=== PATIENT | female | born 1940 | race Caucasian/White ===

== ENCOUNTER 2016-09-19 16:31 | Inpatient (IN) | payer MEDICARE, BC ==
[~2016-09-19 16:31] MED LIST: ATOR40TA PO; COZA50TA PO; GABA100C4 PO; GLUC10TA3 PO; HYDR-3534 PO; LEVO50TA4 PO; METF-324 PO; OMEP20TA PO
[2016-09-19 20:00] VITALS: BP 155/88; PULSE 90; PULSE 95; RESP 18; TEMP 98.6; O2SAT 97
[2016-09-19] MEDS: oxyCODONE/ACETAMINOPHEN 5 MG/325 MG TAB PO PRN (20:17)
--- NOTE | 2016-09-19 20:29 | HHI.HP ---
History of Present Illness Chief Complaint: Hx of right lower extremity great toe amputation for OM that has been slow to heal. History of Present Illness 76 year old female with hx of endovascular tibial revascularization in 2016 for right great toe gangrene status post amputation and wound care (wound care center [facility]) with hyperbaric oxygen. Patient presented to office for surveillance duplex US and was found to have patent right Common femoral, SFA and Popliteal arteries with monophasic flow distally. Right great toe stump was malodorous with discharge. Spoke with Dr. Massey application architect (privileges at [facility]) last week in office. Dr. Massey asked if patient could be admitted via [facility] ER for evaluation and possible debridement/resection and plan for IV antibiotics by her ID physician ( wound care physician) in charge of her hyperbaric oxygen (Dr. Pa) I agreed to this although suspected failed vascular intervention and that patient needed an angiogram with possible intervention (percutaneous vs open) with vein mapping. Was scheduled to have this today at [facility]. Patient's son notified me that patient had an angiogram and would be possibly having a bypass by Dr. Watts at [facility]. This is a long established patient known to me and after discussion with the patient's son they agreed to have the patient transferred here. Past/Family/Social History Past Medical History DM PAD peripheral neuropathy hypertension hypothyroidism anemia Past Surgical History Right great toe amputation. 2016 right lower extremity revascularization (endovascular) awaiting records/films to review previous tx. Social History denies smoking or alcohol. Family History denies Home Medications Reported Medications Multiple Vitamin (Multi-Vitamin Daily)1 Tab Tab1 Tab PO DAILY Ref 0 09/19/16 Losartan 50 Mg Tab50 Mg PO DAILY #30 TAB Ref 0 09/19/16 Omeprazole 20 Mg Tab20 Mg PO DAILY #30 TAB Ref 0 09/19/16 Levothyroxine 50 Mcg Tab50 Mcg PO DAILY #30 TAB Ref 0 09/19/16 Glipizide 10 Mg Tab10 Mg PO BIDAC #60 TAB Ref 0 Take 30 minutes before a meal 09/19/16 Pregabalin (Lyrica)75 Mg Cap75 Mg PO BID #60 CAP Ref 0 09/19/16 Simvastatin 40 Mg Tab40 Mg PO HS #30 TAB Ref 0 09/19/16 Discontinued Reported Medications Hydrocodone/Acetaminophen 7.5 mg/325 mg (Lortab 7.5 mg/325 mg)1 Tab1 Tab PO Q4H PRN (PAIN) 07/30/14 Metformin ER 24 HR 1,000 Mg Tab1,000 Mg PO BIDAC 04/26/13 Levothyroxine Sodium (Levothyroxine 50 mcg)50 Mcg Tab50 Mcg PO DAILY 04/26/13 Omeprazole 20 mg 20 Mg Tab20 Mg PO DAILY 04/26/13 Losartan Potassium (Cozaar)50 Mg Tab50 Mg PO DAILY 04/26/13 Gabapentin 100 Mg Pbg311 Mg PO TID 04/25/13 Atorvastatin 40 mg 40 Mg Tab40 Mg PO HS 04/25/13 Glipizide 10 Mg Tab10 Mg PO BID 04/25/13 Coded Allergies: No Known Allergies (Unverified , 04/26/13) Review of Systems Musculoskeletal: COMPLAINS OF: Muscle aches (right calf pain.) Physical Exam Neuro: CN2-12 intact. gross motor intact right foot. Neck: No carotid bruits. Heart: no murmurs Lungs: CTA bilaterally Abdomen: soft and non-distended. Vascular: Bilateral femoral palpable. Right dp and pt monophasic left dp and pt Triphasic Extremities: left groin with ecchymosis Right great toe amputation stump with serous drainage. (non-malodorous) discoloration right 2nd toe. Assessment and Plan Assessment: (1) Diabetic foot ulcer with osteomyelitis Status: Chronic Plan This is a 76 year old female with a right great toe amputation that has failed to completely heal. Patient has had wound care with hyperbaric tx and courses of antibiotics. She had a hx of an endovascular intervention (tibial balloon angioplasty) that has failed performed by me in March of 2016. I don't have access to previous images but most recent angiogram report notes an occluded Pop/tibioperonal trunk and proximal AT with distal reconstitution (from [facility]) Toe stump wound improved in appearance and odor improved with IV antibiotics. Will review MRI (09/16) suspicious for right 1st dorsal MT head OM. Will vein map and review previous angiogram. Bypass vs recanalization. Will most likely perform an arteriogram to critically review runoff 09/20. I spoke with daughter by phone after patient admitted to discuss plan. Julian Brooks DO,FACS' [facility] MICHELLE/Julian Garcia DO Sep 19, 2016 20:29
[2016-09-19 20:58] LABS: AUTOMATED NEUTROPHIL # 6.1 TH/MM3 (1.8-7.7); BASOPHIL # 0.1 TH/MM3 (0-0.2); BASOPHIL % 0.6 % (0.0-2.0); EOSINOPHIL # 0.1 TH/MM3 (0-0.4); EOSINOPHIL % 1.6 % (0.0-4.0); HEMATOCRIT 32.8 % (35.0-46.0); HEMO FLAGS DIFF FINAL; LYMPHOCYTE # 1.6 TH/MM3 (1.0-4.8); MEAN CELL VOLUME 86.7 FL (80.0-100.0); MEAN CORPUSCULAR HGB CONC 33.4 % (32.0-36.0); MONO % 10.6 % (0.0-8.0); NEUT % 69.2 % (16.0-70.0); PLATELET COUNT 257 TH/MM3 (150-450); RED BLOOD COUNT 3.78 MIL/MM3 (4.00-5.30); RED CELL DISTRIBUTION WIDTH 15.4 % (11.6-17.2); WHITE BLOOD COUNT 8.9 TH/MM3 (4.0-11.0)
[2016-09-19 21:00] VITALS: PULSE 87
[2016-09-19 21:10] VITALS: O2SAT 97
[2016-09-19 21:10] LABS: APTT (PATIENT) 25.9 SEC (24.3-30.1); PROTHROMBIN TIME - PATIENT 10.7 SEC (9.8-11.6)
[2016-09-19 21:22] LABS: BICARBONATE 29.8 MEQ/L (21.0-32.0); POTASSIUM 3.9 MEQ/L (3.5-5.1)
[2016-09-19 22:00] VITALS: PULSE 83
[2016-09-19] MEDS ORDERED: SIMV40TA PO (22:20)
[2016-09-19] MEDS ORDERED: LYRI75CA PO (22:20)
[2016-09-19] MEDS ORDERED: LOSA50TA PO (22:23)
[2016-09-19] MEDS ORDERED: GLIP10TA6 PO (22:23)
[2016-09-19] MEDS ORDERED: OMEP20TA PO (22:23)
[2016-09-19] MEDS ORDERED: LEVO50TA4 PO (22:23)
[2016-09-19] MEDS ORDERED: MULT-65 PO (22:28)
[2016-09-19] MEDS: MORPHINE SULFATE 4 MG/ML INJ IV PRN (22:36)
[2016-09-19] MEDS: DEXT 5%-NACL 0.9% 1000 ML INJ 1,000 ML IV SCH (22:41)
[2016-09-19 23:00] VITALS: PULSE 83
[2016-09-19] MEDS ORDERED: GLUCAGON 1 MG/ML VIAL OTHER PRN (23:00)
[2016-09-19] MEDS ORDERED: DEXTROSE 50% IN WATER 50 ML VIAL(D50) IV PUSH PRN (23:00)
[2016-09-20] VITALS (24 sets, daily range): BP systolic 131–152; BP diastolic 71–86; PULSE 80–109; RESP 18–20; TEMP 97.5–98.5; O2SAT 96–99
[2016-09-20] MEDS: PIPERACIL-TAZO 3.375 GM PREMIX 50 ML IV SCH ×5 (00:14→23:13)
[2016-09-20] MEDS: VANCOMYCIN 1,000 MG/NS 250 ML IV SCH ×4 (00:43→23:13)
[2016-09-20] MEDS: MORPHINE SULFATE 4 MG/ML INJ IV PRN ×6 (05:42→21:16)
[2016-09-20] MEDS: MEDIUM DOSE INSULIN NOVOLOG SUPPLEMENTAL SCALE SQ SCH ×4 (06:15→21:17)
[2016-09-20] MEDS: oxyCODONE/ACETAMINOPHEN 5 MG/325 MG TAB PO PRN ×3 (06:35→21:16)
[2016-09-20 07:03] LABS: AUTOMATED NEUTROPHIL # 5.4 TH/MM3 (1.8-7.7); BASOPHIL % 0.4 % (0.0-2.0); EOSINOPHIL # 0.2 TH/MM3 (0-0.4); EOSINOPHIL % 2.3 % (0.0-4.0); HEMATOCRIT 32.2 % (35.0-46.0); HEMO FLAGS DIFF FINAL; LYMPH % 20.5 % (9.0-44.0); LYMPHOCYTE # 1.7 TH/MM3 (1.0-4.8); MEAN CELL VOLUME 85.8 FL (80.0-100.0); MEAN CORPUSCULAR HEMOGLOBIN 28.4 PG (27.0-34.0); MEAN CORPUSCULAR HGB CONC 33.2 % (32.0-36.0); MONO % 11.1 % (0.0-8.0); NEUT % 65.7 % (16.0-70.0); PLATELET COUNT 256 TH/MM3 (150-450); RED BLOOD COUNT 3.76 MIL/MM3 (4.00-5.30); RED CELL DISTRIBUTION WIDTH 15.9 % (11.6-17.2); WHITE BLOOD COUNT 8.3 TH/MM3 (4.0-11.0)
[2016-09-20 07:08] LABS: APTT (PATIENT) 26.1 SEC (24.3-30.1); PROTHROMBIN TIME - PATIENT 10.9 SEC (9.8-11.6)
[2016-09-20 07:18] LABS: BICARBONATE 28.7 MEQ/L (21.0-32.0); POTASSIUM 3.8 MEQ/L (3.5-5.1)
--- NOTE | 2016-09-20 12:29 | RADRPT ---
EXAM DATE/TIME: 09/20/2016 10:50 [facility] COMPARISON: No previous studies available for comparison. INDICATIONS : Bypass surgery. MEDICAL HISTORY : Hypertension. Hiatal hernia. Thryoid disease. Diabetes. SURGICAL HISTORY : Cholecystectomy. Hernia repair. Kidney stone removed. Orthopedic surgery, right shoulder, back surger y, and right great toe amputated. ENCOUNTER: Initial ACUITY: 1 day PAIN SCORE: 0/10 LOCATION: Bilateral legs. TECHNIQUE: Venous ultrasound of the left and right leg was performed from the inguinal ligament to the proximal calf. Real-time, color Doppler and spectral tracing, compression and augmentation techniques were us ed. FINDINGS: RIGHT LEG: There is normal compressibility of the deep venous system from the inguinal region to the proximal ca lf. No echogenic clot is seen in the lumen of the common femoral, femoral, popliteal, and posterior tibial veins. There is a normal response of the venous system to proximal and distal augmentation an d respiration. LEFT LEG: There is normal compressibility of the deep venous system from the inguinal region to the proximal ca lf. No echogenic clot is seen in the lumen of the common femoral, femoral, popliteal, and posterior tibial veins. There is a normal response of the venous system to proximal and distal augmentation an d respiration. CONCLUSION: No DVT is identified within either lower extremity. Alfredo Gr MD on September 20, 2016 at 12:28 Board Certified Radiologist. This report was verified electronically.
[2016-09-20] MEDS ORDERED: MAGN500T2 PO (13:02)
--- NOTE | 2016-09-20 14:29 | RADRPT ---
EXAM DATE/TIME: 09/20/2016 11:00 [facility] COMPARISON: No previous studies available for comparison. INDICATIONS : Bypass surgery. MEDICAL HISTORY : Hypertension. Hiatal hernia. Thryoid disease. Diabetes. SURGICAL HISTORY : Cholecystectomy. Hernia repair. Kidney stone removed. Orthopedic surgery, right shoulder, back surg sky, and right great toe amputated. ENCOUNTER: Initial ACUITY: 1 day PAIN SCORE: 0/10 LOCATION: Bilateral legs. GREATER SAPHENOUS VEIN THIGH: PROXIMAL: Right 4 mm Left 4 mm MID: Right 4 mm Left 3 mm DISTAL: Right 4 mm Left 2 mm CALF: PROXIMAL: Right 3 mm Left 2 mm MID: Right 3 mm Left 2 mm DISTAL: Right 3 mm Left 3 mm FINDINGS: The venous system of the lower extremities are patent by color Doppler imaging. Measurements of the leg veins (in mm) are listed above. CONCLUSION: 1. Venous mapping as above Morro Bingham MD on September 20, 2016 at 14:28 Board Certified Radiologist. This report was verified electronically.
[2016-09-20] MEDS: DEXT 5%-NACL 0.9% 1000 ML INJ 1,000 ML IV SCH (14:53)
[2016-09-20] MEDS: glipiZIDE 10 MG TAB PO SCH (16:00)
--- NOTE | 2016-09-20 17:49 | PD.VS.PN ---
Subjective Subjective/Hospital Course patient with no new complaints Objective Vitals/I&O Dressing to right foot intact. Date Time Temp Pulse Resp B/P Pulse Ox O2 Delivery O2 Flow Rate FiO2 09/20/16 16:00 95 09/20/16 15:09 16 09/20/16 15:08 16 09/20/16 15:00 98.3 87 18 145/79 97 09/20/16 15:00 84 09/20/16 14:00 101 09/20/16 13:00 81 09/20/16 12:00 82 09/20/16 11:00 98.5 82 18 152/86 99 09/20/16 11:00 83 09/20/16 10:00 95 09/20/16 09:00 83 09/20/16 08:00 84 09/20/16 07:00 85 09/20/16 07:00 85 09/20/16 07:00 97.5 80 18 141/82 96 09/20/16 06:00 102 09/20/16 05:00 98.1 85 20 150/71 98 09/20/16 05:00 84 09/20/16 04:00 86 09/20/16 03:00 82 09/20/16 02:00 84 09/20/16 01:00 88 09/20/16 00:00 98.2 83 18 151/83 98 09/20/16 00:00 94 09/19/16 23:00 83 09/19/16 22:00 83 09/19/16 21:10 97 21 09/19/16 21:00 87 09/19/16 20:00 98.6 95 18 155/88 97 09/19/16 20:00 90 09/20/16 09/20/16 09/20/16 07:00 15:00 23:00 Intake Total 944 ml Output Total 1200 ml Balance -256 ml Laboratory Laboratory Tests Test 09/19/16 09/20/16 20:30 06:25 White Blood Count 8.9 8.3 Red Blood Count 3.78 3.76 Hemoglobin 10.9 10.7 Hematocrit 32.8 32.2 Mean Corpuscular Volume 86.7 85.8 Mean Corpuscular Hemoglobin 29.0 28.4 Mean Corpuscular Hemoglobin 33.4 33.2 Concent Red Cell Distribution Width 15.4 15.9 Platelet Count 257 256 Mean Platelet Volume 10.6 10.5 Neutrophils (%) (Auto) 69.2 65.7 Lymphocytes (%) (Auto) 18.0 20.5 Monocytes (%) (Auto) 10.6 11.1 Eosinophils (%) (Auto) 1.6 2.3 Basophils (%) (Auto) 0.6 0.4 Neutrophils # (Auto) 6.1 5.4 Lymphocytes # (Auto) 1.6 1.7 Monocytes # (Auto) 0.9 0.9 Eosinophils # (Auto) 0.1 0.2 Basophils # (Auto) 0.1 0.0 CBC Comment DIFF FINAL DIFF FINAL Differential Comment Prothrombin Time 10.7 10.9 Prothromb Time International 1.0 1.0 Ratio Activated Partial 25.9 26.1 Thromboplast Time Sodium Level 139 140 Potassium Level 3.9 3.8 Chloride Level 101 105 Carbon Dioxide Level 29.8 28.7 Anion Gap 8 6 Blood Urea Nitrogen 15 12 Creatinine 0.96 0.75 Estimat Glomerular Filtration 57 75 Rate Random Glucose 275 277 Calcium Level 8.8 8.9 Imaging Last 48 hours Impressions Lower Extremity Ultrasound 09/20/16 0000 Signed Impressions: Service Date/Time: Tuesday, September 20, 2016 10:50 - CONCLUSION: No DVT is identified within either lower extremity. Alfredo Gr MD Lower Extremity Ultrasound 09/20/16 0000 Signed Impressions: Service Date/Time: Tuesday, September 20, 2016 11:00 - CONCLUSION: 1. Venous mapping as above Morro Bingham MD Assessment and Plan Assessment: (1) Diabetic foot ulcer with osteomyelitis Status: Chronic Plan This is a 76 year old female with a right great toe amputation that has failed to completely heal. Patient has had wound care with hyperbaric tx and courses of antibiotics. Hx of failed endovascular tx. Toe stump wound improved in appearance and odor improved with IV antibiotics. Plan for arteriogram to definitively decide on possibility of bypass. Outside angio shows marginal AT target with disease at the most distal extent with poor runoff in the foot. This brings into question whether a bypass is a realistic option. Re-attempt at endovascular recanalization from the popliteal into the peroneal artery may be another alternative if bypass is not an option. Scheduled for arteriogram with possible intervention 09/21. I have spoken to the son, and patient about these plans. We have spoken about the risk of limb loss now and previously in office multiple times. They understand the risks and benefits of the angiogram and possible rechannelling of the popliteal and tibial vessels. Patient will have home medications restarted and will be made NPO for procedure tomorrow in the hybrid suite. Julian Brooks DO,ZACHARIAH' [facility] [employer] /Julian Garcia DO Sep 20, 2016 17:49
[2016-09-20] MEDS: PREGABALIN 75 MG CAP PO SCH (21:15)
[2016-09-20] MEDS: PRAVASTATIN SOD 80 MG TAB PO SCH (21:15)
[2016-09-20] MEDS ORDERED: DEXT 5%-NACL 0.9% 1000 ML INJ 1,000 ML IV SCH (23:00)
[2016-09-21] VITALS (18 sets, daily range): BP systolic 133–161; BP diastolic 73–86; PULSE 80–98; RESP 16–19; TEMP 98.1–98.7; O2SAT 96–100
[2016-09-21] MEDS: MORPHINE SULFATE 4 MG/ML INJ IV PRN ×5 (03:28→22:35)
[2016-09-21] MEDS: LEVOTHYROXINE SODIUM 50 MCG TAB PO SCH (06:01)
[2016-09-21] MEDS: PIPERACIL-TAZO 3.375 GM PREMIX 50 ML IV SCH ×4 (06:01→22:37)
[2016-09-21] MEDS ORDERED: METOPROLOL TARTRATE 25 MG TAB PO PRN (06:30)
[2016-09-21] MEDS: SODIUM CHLORID 0.9% 500 ML IV SCH ×2 (06:30→23:10)
[2016-09-21] MEDS: LACTATED RINGER'S 1000 ML IV SCH (06:30)
[2016-09-21] MEDS ORDERED: INSULIN HUMAN REGULAR 1,000 UNITS/10 ML VIAL SQ PRN (06:30)
[2016-09-21] MEDS: glipiZIDE 10 MG TAB PO SCH ×2 (07:00→15:24)
[2016-09-21] MEDS: MEDIUM DOSE INSULIN NOVOLOG SUPPLEMENTAL SCALE SQ SCH ×4 (07:00→21:00)
--- NOTE | 2016-09-21 08:07 | EKG ---
Date Performed: 09/21/2016 Time Performed: 06:16:46 PTAGE: 76 years EKG: Sinus rhythm with borderline 1st degree A-V block Borderline ECG NO SIGNIFICANT CHANGE FROM PRIOR ELECTROCARDIOGR AM. PREVIOUS TRACING : 04/25/2013 10.15 DOCTOR: Jose Garcia Interpretating Date/Time 09/21/2016 08:06:15
[2016-09-21] MEDS: MULTIVITAMIN TAB PO SCH (08:45)
[2016-09-21] MEDS: PANTOPRAZOLE SOD 20 MG DELAYED RELEASE TAB PO SCH (08:45)
[2016-09-21] MEDS: PREGABALIN 75 MG CAP PO SCH ×2 (08:45→22:36)
[2016-09-21] MEDS: LOSARTAN 50 MG TAB PO SCH (08:45)
[2016-09-21] MEDS: oxyCODONE/ACETAMINOPHEN 5 MG/325 MG TAB PO PRN ×2 (08:45→22:44)
[2016-09-21] MEDS ORDERED: Vancomycin Consult Pharmacy XX SCH (10:30)
[2016-09-21] MEDS ORDERED: MAGNESIUM OXIDE 400 MG TAB PO SCH (11:00)
[2016-09-21] MEDS ORDERED: BUPIVACAINE/EPINEPHRINE 0.25% PF 30 ML VIAL ONE ×2 (15:38→15:39)
[2016-09-21] MEDS ORDERED: HEPARIN SODIUM - SQ 10,000 UNITS/ML VIAL ONE (15:39)
[2016-09-21] MEDS ORDERED: FAMOTIDINE 20 MG/2 ML VIAL ONE (15:47)
[2016-09-21] MEDS ORDERED: MIDAZOLAM HCL 2 MG/2 ML VIAL ONE (16:02)
[2016-09-21] MEDS ORDERED: HEPARIN SODIUM - IV 10,000 UNITS/10 ML VIAL ONE (16:33)
[2016-09-21] MEDS ORDERED: ceFAZolin INJ 1,000 MG VIAL ONE (16:33)
[2016-09-21] MEDS ORDERED: PROTAMINE SULFATE 50 MG/5 ML VIAL ONE (17:36)
--- NOTE | 2016-09-21 18:23 | PD.VS.PN ---
Subjective Subjective/Hospital Course patient with no new complaints Objective Vitals/I&O Date Time Temp Pulse Resp B/P Pulse Ox O2 Delivery O2 Flow Rate FiO2 09/21/16 13:00 81 09/21/16 12:00 90 09/21/16 11:40 16 09/21/16 11:31 98.2 84 18 136/73 09/21/16 11:00 84 09/21/16 10:00 82 09/21/16 09:45 20 09/21/16 09:45 20 09/21/16 09:00 85 09/21/16 08:30 98.1 98 19 137/85 98 09/21/16 08:00 91 09/21/16 07:00 89 09/21/16 06:00 85 09/21/16 05:00 82 09/21/16 04:00 84 09/21/16 03:00 86 09/21/16 03:00 98.3 86 18 161/86 98 09/21/16 02:00 80 09/21/16 01:00 80 09/21/16 00:00 87 09/20/16 23:00 98.4 86 18 134/71 96 09/20/16 23:00 86 09/20/16 22:00 90 09/20/16 21:00 88 09/20/16 20:00 89 09/20/16 19:00 98.1 90 18 131/80 98 09/20/16 19:00 90 09/21/16 09/21/16 09/21/16 07:00 15:00 23:00 Intake Total 1250 ml 1070 ml Output Total 1150 ml 400 ml 700 ml Balance 100 ml -400 ml 370 ml Physical Exam left groin with expanding ecchymosis and skin tear under groin crease. No induration or fluctuance. Imaging Last 48 hours Impressions Lower Extremity Ultrasound 09/20/16 0000 Signed Impressions: Service Date/Time: Tuesday, September 20, 2016 10:50 - CONCLUSION: No DVT is identified within either lower extremity. Alfredo Gr MD Lower Extremity Ultrasound 09/20/16 0000 Signed Impressions: Service Date/Time: Tuesday, September 20, 2016 11:00 - CONCLUSION: 1. Venous mapping as above Morro Bingham MD Assessment and Plan Assessment: (1) Diabetic foot ulcer with osteomyelitis Status: Chronic Plan This is a 76 year old female with a right great toe amputation that has failed to completely heal. Patient has had wound care with hyperbaric tx and courses of antibiotics. Hx of failed endovascular tx. Patient taken to endovascular suite. Patient accessed and Siemens hybrid machine dysfunctional. Inability to perform angiogram. Plan for repeat attempt later this week or early next week. Spoke with son. Julian Brooks DO,FACS' [employer] [facility] Vascular Surgery /[place] Julian Brooks DO Sep 21, 2016 18:23
--- NOTE | 2016-09-21 20:55 | MA ---
cc: JULIAN HURLEY DO DATE: 09/21/2016 ANGIOGRAM REPORT PREOPERATIVE DIAGNOSIS Critical limb ischemia, right lower extremity POSTOPERATIVE DIAGNOSIS Critical limb ischemia, right lower extremity. PROCEDURE Ultrasound access for left groin. SURGEON Julian Hurley MD. ANESTHESIA MAC and approximately 5 cc of 0.25% Marcaine with epinephrine. IV FLUIDS Approximately 30 cc. PROCEDURE The patient was prepped from the thigh port process to the toes. I got access to the left common femoral artery using duplex ultrasound with a 21-gauge needle. I exchanged over a thin wire for a 4-Icelandic micropuncture catheter, then I exchanged over a braided wire for a 5-Icelandic sheath. I advanced an Omni Flush catheter over a stiff-angled Glidewire in the abdominal aorta. As we were advancing our glidewire up over the catheter, it should be noted that the x-ray imaging appeared grainy and we were able to actually see angio but no DSA was available. It should be noted that since we did have the sheath within the patient we gave him 3000 units of heparin. We tried to do a soft stop and then a total shunt down on the system with a second restart of the system with inability to get the system restarted, and there would be suboptimal imaging for any type of recanalization to determine the best optimal runoff for a bypass. Based on this we gave the patient 30 units of protamine and removed the sheath from the left groin and applied pressure. The patient did get approximately 5 cc of 0.25% Marcaine with epinephrine in the left groin. DO AUSTIN Aquino/ZULMA /5:44 PM /8:02 PM
[2016-09-21] MEDS: PRAVASTATIN SOD 80 MG TAB PO SCH (22:36)
[2016-09-21] MEDS: VANCOMYCIN 1,000 MG/NS 250 ML IV SCH ×2 (22:37)
[2016-09-21] MEDS ORDERED: [UNRECOGNIZED DRUG - REMARK] XX ONE (22:45)
[2016-09-22] VITALS (15 sets, daily range): BP systolic 90–158; BP diastolic 50–89; PULSE 79–101; RESP 16–22; TEMP 97.9–99.5; O2SAT 94–98
[2016-09-22] MEDS: MORPHINE SULFATE 4 MG/ML INJ IV PRN ×5 (03:29→16:31)
[2016-09-22] MEDS: LACTATED RINGER'S 1000 ML IV SCH (04:32)
[2016-09-22] MEDS: LEVOTHYROXINE SODIUM 50 MCG TAB PO SCH (04:32)
[2016-09-22] MEDS: PIPERACIL-TAZO 3.375 GM PREMIX 50 ML IV SCH ×3 (04:32→16:43)
[2016-09-22] MEDS: MEDIUM DOSE INSULIN NOVOLOG SUPPLEMENTAL SCALE SQ SCH ×4 (05:35→21:51)
[2016-09-22] MEDS: glipiZIDE 10 MG TAB PO SCH ×2 (05:35→16:30)
[2016-09-22] MEDS: LOSARTAN 50 MG TAB PO SCH (08:06)
[2016-09-22] MEDS: PANTOPRAZOLE SOD 20 MG DELAYED RELEASE TAB PO SCH (08:06)
[2016-09-22] MEDS: MULTIVITAMIN TAB PO SCH (08:06)
[2016-09-22] MEDS: PREGABALIN 75 MG CAP PO SCH ×2 (08:07→20:51)
[2016-09-22] MEDS: oxyCODONE/ACETAMINOPHEN 5 MG/325 MG TAB PO PRN ×2 (08:08→21:54)
[2016-09-22] MEDS ORDERED: NOVOLOGP2 SQ (08:15)
--- NOTE | 2016-09-22 10:28 | PD.VS.PN ---
Subjective Subjective/Hospital Course Pt is a 76/F resting comfortably in chair with family at the . Pt has no complaints at present time Objective Vitals/I&O Date Time Temp Pulse Resp B/P Pulse Ox O2 Delivery O2 Flow Rate FiO2 09/22/16 09:08 20 09/22/16 09:08 20 09/22/16 08:16 16 09/22/16 08:00 86 09/22/16 08:00 97.9 94 16 115/67 98 09/22/16 04:00 79 09/22/16 04:00 98.6 79 18 143/72 96 09/22/16 00:00 98.5 101 22 158/89 94 09/22/16 00:00 101 09/21/16 20:00 98.7 87 18 147/80 96 09/21/16 20:00 87 09/21/16 18:40 98.2 81 16 133/78 100 09/21/16 13:00 81 09/21/16 12:00 90 09/21/16 11:31 98.2 84 18 136/73 09/21/16 11:00 84 09/22/16 09/22/16 09/22/16 07:00 15:00 23:00 Intake Total 590 ml Output Total 1400 ml Balance -810 ml Physical Exam GENERAL: Pt alert in oriented in nad, GCS 15 SKIN: Warm and dry. Right great toe amp site with white d/c noted NECK: Supple, trachea midline. No JVD or lymphadenopathy. CARDIOVASCULAR: Regular rate and rhythm RESPIRATORY: No accessory muscle use. GASTROINTESTINAL: Abdomen soft, non-tender, nondistended. MUSCULOSKELETAL: No cyanosis, or edema. Laboratory Laboratory Tests Test 09/21/16 22:25 Vancomycin Level Trough 8.4 Creatinine 0.94 Estimat Glomerular Filtration 58 Rate Assessment and Plan Assessment: (1) Diabetic foot ulcer with osteomyelitis Status: Chronic Plan This is a 76 year old female with a right great toe amputation that has failed to completely heal. Patient has had wound care with hyperbaric tx and courses of antibiotics. Hx of failed endovascular tx. PT Consult Case Management Consult Wound Care Consult Adjust home medications Plan for repeat attempt Angio early next week with wound debridement . Syeda [facility]/[place] [phone] Syeda Cobian Sep 22, 2016 10:28
[2016-09-22] MEDS: COLLAGENASE OINT 30 GM TUBE TOP SCH (10:48)
[2016-09-22] MEDS: MAGNESIUM OXIDE 400 MG TAB PO SCH (16:43)
[2016-09-22 16:48] LABS: HEMOGLOBIN A1b 2.6 %; HEMOGLOBIN Ao 80.4 %; HEMOGLOBIN LA1C 2.8 %; HEMOGLOBIN P3 4.9 %
[2016-09-22] MEDS: VANCOMYCIN 1,000 MG/NS 250 ML IV SCH ×2 (17:38)
[2016-09-22] MEDS: PRAVASTATIN SOD 80 MG TAB PO SCH (20:51)
[2016-09-23] VITALS (17 sets, daily range): BP systolic 119–164; BP diastolic 78–84; PULSE 68–102; RESP 16–18; TEMP 97.4–99.5; O2SAT 96–99
[2016-09-23] MEDS: glipiZIDE 10 MG TAB PO SCH ×2 (05:42→17:30)
[2016-09-23] MEDS: PIPERACIL-TAZO 3.375 GM PREMIX 50 ML IV SCH ×5 (05:43→23:41)
[2016-09-23] MEDS: LEVOTHYROXINE SODIUM 50 MCG TAB PO SCH (05:43)
[2016-09-23] MEDS: oxyCODONE/ACETAMINOPHEN 5 MG/325 MG TAB PO PRN ×3 (05:43→21:03)
[2016-09-23] MEDS: MEDIUM DOSE INSULIN NOVOLOG SUPPLEMENTAL SCALE SQ SCH ×4 (05:43→20:57)
[2016-09-23] MEDS: LACTATED RINGER'S 1000 ML IV SCH (06:30)
[2016-09-23] MEDS: PANTOPRAZOLE SOD 20 MG DELAYED RELEASE TAB PO SCH (08:44)
[2016-09-23] MEDS: PREGABALIN 75 MG CAP PO SCH ×2 (08:44→20:57)
[2016-09-23] MEDS: LOSARTAN 50 MG TAB PO SCH (08:44)
[2016-09-23] MEDS: MULTIVITAMIN TAB PO SCH (08:45)
[2016-09-23] MEDS: COLLAGENASE OINT 30 GM TUBE TOP SCH (09:00)
[2016-09-23] MEDS: VANCOMYCIN 1,000 MG/NS 250 ML IV SCH ×2 (12:04)
--- NOTE | 2016-09-23 16:41 | PD.VS.PN ---
Subjective Subjective/Hospital Course Pt is a 76/F resting comfortably in chair with family at the . Pt has no complaints at present time Objective Vitals/I&O Date Time Temp Pulse Resp B/P Pulse Ox O2 Delivery O2 Flow Rate FiO2 09/23/16 16:31 97.4 80 18 119/78 96 09/23/16 16:31 80 09/23/16 14:53 80 09/23/16 13:19 18 09/23/16 13:16 92 09/23/16 12:08 83 09/23/16 12:08 97.8 86 18 164/83 99 09/23/16 11:30 81 09/23/16 10:36 18 09/23/16 10:00 84 09/23/16 09:00 87 09/23/16 08:00 92 09/23/16 08:00 97.6 87 18 136/83 98 09/23/16 04:00 88 09/23/16 04:00 98.7 88 16 138/83 96 09/23/16 00:00 68 09/23/16 00:00 99.5 102 16 159/83 96 09/22/16 20:00 99.5 87 16 138/65 96 09/22/16 20:00 87 09/22/16 18:00 89 09/22/16 17:00 87 09/23/16 09/23/16 09/23/16 07:00 15:00 23:00 Intake Total 360 ml Balance 360 ml Physical Exam dressing intact right foot. left groin with xeroform dressing. Assessment and Plan Assessment: (1) Diabetic foot ulcer with osteomyelitis Status: Chronic Plan This is a 76 year old female with a right great toe amputation that has failed to completely heal. Patient has had wound care with hyperbaric tx and courses of antibiotics. Hx of failed endovascular tx. PT Consult Case Management Consult Wound Care Consult Adjust home medications Hgb A1c greater than 7. Endocrinology consult early next week. Plan for right lower extremity angiogram and amputation revision on tuesday 09/26. Will obtain consent AM of procedure. Patient order for NPO placed. Julian Brooks DO, FACS [employer] Research Coordinator of Vascular Surgery MICHELLE/Julian Garcia DO Sep 23, 2016 16:41
[2016-09-23] MEDS: MAGNESIUM OXIDE 400 MG TAB PO SCH (17:52)
[2016-09-23] MEDS: PRAVASTATIN SOD 80 MG TAB PO SCH (20:57)
[2016-09-24] VITALS (22 sets, daily range): BP systolic 114–165; BP diastolic 71–90; PULSE 66–98; RESP 14–20; TEMP 97.9–99.2; O2SAT 95–98
[2016-09-24] MEDS: oxyCODONE/ACETAMINOPHEN 5 MG/325 MG TAB PO PRN (04:39)
[2016-09-24] MEDS: glipiZIDE 10 MG TAB PO SCH ×2 (05:31→16:55)
[2016-09-24] MEDS: LEVOTHYROXINE SODIUM 50 MCG TAB PO SCH (05:31)
[2016-09-24] MEDS: VANCOMYCIN 1,000 MG/NS 250 ML IV SCH ×2 (05:31)
[2016-09-24] MEDS: MEDIUM DOSE INSULIN NOVOLOG SUPPLEMENTAL SCALE SQ SCH ×4 (05:34→21:26)
[2016-09-24] MEDS ORDERED: PHARMACY ORDERED LAB XX ONE (05:45)
[2016-09-24] MEDS: LACTATED RINGER'S 1000 ML IV SCH (06:30)
[2016-09-24] MEDS: PIPERACIL-TAZO 3.375 GM PREMIX 50 ML IV SCH ×4 (07:02→23:15)
[2016-09-24] MEDS: COLLAGENASE OINT 30 GM TUBE TOP SCH (09:00)
[2016-09-24] MEDS: LOSARTAN 50 MG TAB PO SCH (09:03)
[2016-09-24] MEDS: MULTIVITAMIN TAB PO SCH (09:03)
[2016-09-24] MEDS: PREGABALIN 75 MG CAP PO SCH ×2 (09:03→21:23)
[2016-09-24] MEDS: PANTOPRAZOLE SOD 20 MG DELAYED RELEASE TAB PO SCH (09:04)
--- NOTE | 2016-09-24 09:46 | PD.VS.PN ---
Subjective Subjective/Hospital Course Pt is a 76/F with R LE tissue loss No complaints this morning Mj diet Objective Vitals/I&O Date Time Temp Pulse Resp B/P Pulse Ox O2 Delivery O2 Flow Rate FiO2 09/24/16 06:00 83 09/24/16 05:39 20 09/24/16 05:00 85 09/24/16 04:35 Room Air 09/24/16 04:35 98.5 93 20 165/87 95 09/24/16 04:00 85 09/24/16 03:00 88 09/24/16 02:00 87 09/24/16 01:00 66 09/24/16 00:00 67 09/24/16 00:00 Room Air 09/24/16 00:00 99.2 84 18 147/81 96 09/23/16 23:00 68 09/23/16 22:00 80 09/23/16 21:57 20 09/23/16 21:00 91 09/23/16 20:00 98.4 91 18 154/84 97 09/23/16 20:00 94 09/23/16 20:00 Room Air 09/23/16 19:00 88 09/23/16 18:08 91 09/23/16 17:26 83 09/23/16 16:31 97.4 80 18 119/78 96 09/23/16 16:31 80 09/23/16 14:53 80 09/23/16 13:16 92 09/23/16 12:08 83 09/23/16 12:08 97.8 86 18 164/83 99 09/23/16 11:30 81 09/23/16 10:00 84 09/24/16 09/24/16 09/24/16 07:00 15:00 23:00 Intake Total 653 ml Balance 653 ml Physical Exam L groin still ecchymotic but significantly improved Laboratory Laboratory Tests Test 09/24/16 05:00 Creatinine 0.86 Estimat Glomerular Filtration 64 Rate Vancomycin Level Trough 12.1 Assessment and Plan Assessment: (1) Diabetic foot ulcer with osteomyelitis Status: Chronic Plan This is a 76 year old female with a right great toe amputation that has failed to completely heal. Patient has had wound care with hyperbaric tx and courses of antibiotics. Hx of failed endovascular tx. Plan for R LE angiogram and toe debridement / amputation Monday Endocrine c/s since Hgb A1c 7.7 Calin Berry MD Sep 24, 2016 09:46
[2016-09-24] MEDS: VANCOMYCIN INJ 750 MG in SODIUM CHLOR 0.9% 250 ML INJ 250 ML IV SCH (17:04)
[2016-09-24] MEDS: MAGNESIUM OXIDE 400 MG TAB PO SCH (17:04)
[2016-09-24] MEDS: PRAVASTATIN SOD 80 MG TAB PO SCH (21:23)
[2016-09-25] VITALS (24 sets, daily range): BP systolic 105–158; BP diastolic 50–87; PULSE 75–94; RESP 14–22; TEMP 97.6–98.8; O2SAT 95–99
[2016-09-25] MEDS: oxyCODONE/ACETAMINOPHEN 5 MG/325 MG TAB PO PRN ×4 (00:53→23:29)
[2016-09-25] MEDS: MORPHINE SULFATE 4 MG/ML INJ IV PRN ×2 (03:11→18:11)
[2016-09-25] MEDS: VANCOMYCIN INJ 750 MG in SODIUM CHLOR 0.9% 250 ML INJ 250 ML IV SCH ×2 (05:27→18:46)
[2016-09-25] MEDS: LEVOTHYROXINE SODIUM 50 MCG TAB PO SCH (05:49)
[2016-09-25] MEDS: PIPERACIL-TAZO 3.375 GM PREMIX 50 ML IV SCH ×4 (06:00→23:15)
[2016-09-25] MEDS: LACTATED RINGER'S 1000 ML IV SCH (06:30)
[2016-09-25] MEDS: MEDIUM DOSE INSULIN NOVOLOG SUPPLEMENTAL SCALE SQ SCH ×5 (07:00→20:07)
[2016-09-25] MEDS: glipiZIDE 10 MG TAB PO SCH ×2 (07:42→17:16)
[2016-09-25] MEDS: COLLAGENASE OINT 30 GM TUBE TOP SCH (09:00)
[2016-09-25] MEDS: MULTIVITAMIN TAB PO SCH (09:46)
[2016-09-25] MEDS: PANTOPRAZOLE SOD 20 MG DELAYED RELEASE TAB PO SCH (09:46)
[2016-09-25] MEDS: LOSARTAN 50 MG TAB PO SCH (09:46)
[2016-09-25] MEDS: PREGABALIN 75 MG CAP PO SCH ×2 (09:47→20:01)
--- NOTE | 2016-09-25 13:27 | PD.VS.PN ---
Subjective Subjective/Hospital Course Pt is a 76/F with R LE tissue loss No complaints this morning Sitting in chair, eating. Notes L groin feels better Objective Vitals/I&O Date Time Temp Pulse Resp B/P Pulse Ox O2 Delivery O2 Flow Rate FiO2 09/25/16 13:20 89 09/25/16 13:02 18 09/25/16 12:19 97.6 84 20 136/85 99 09/25/16 12:19 84 09/25/16 11:49 80 09/25/16 10:47 18 09/25/16 10:43 85 09/25/16 09:55 91 09/25/16 08:00 98.3 91 20 158/87 98 09/25/16 08:00 98 Room Air 09/25/16 08:00 92 09/25/16 06:00 78 09/25/16 05:00 75 09/25/16 04:00 94 09/25/16 04:00 98.3 80 14 105/50 96 09/25/16 03:00 78 09/25/16 02:00 79 09/25/16 01:00 87 09/25/16 00:00 87 09/25/16 00:00 98.8 87 14 125/76 95 09/24/16 23:00 91 09/24/16 22:00 89 09/24/16 21:00 90 09/24/16 20:00 98.3 90 14 151/71 97 09/24/16 20:00 94 09/24/16 19:00 97 Nasal Cannula 2.00 09/24/16 19:00 92 09/24/16 18:07 98 09/24/16 17:08 94 09/24/16 16:02 98.3 91 20 158/87 98 09/24/16 16:02 86 09/24/16 14:48 87 09/24/16 13:32 88 09/25/16 09/25/16 09/25/16 07:00 15:00 23:00 Intake Total 700 ml Output Total 1500 ml Balance -800 ml Physical Exam L groin less ecchymotic Assessment and Plan Assessment: (1) Diabetic foot ulcer with osteomyelitis Status: Chronic Plan This is a 76 year old female with a right great toe amputation that has failed to completely heal. Patient has had wound care with hyperbaric tx and courses of antibiotics. Hx of failed endovascular tx. Plan for R LE angiogram and toe debridement / amputation Monday Endocrine c/s since Hgb A1c 7.7 Calin Berry MD Sep 25, 2016 13:27
--- NOTE | 2016-09-25 13:29 | PD.VS.PN ---
Pre-operative Note Pre-operative diagnosis: R LE tissue loss, PAD Planned procedure: Aortogram w/ R LE angiogram, possible BUSINESS ANALYTICS MANAGER/stent/atherectomy Amputation of toe/metatarsal R 1st digit Labs: Hct 32 (09/20) Cr 0.9 (09/24) INR 1.0 (09/20) Blood: none needed Orders: NPO after MN MIVF Post-operative destination: PACU Operative site marked: Yes Consent: Informed consent has been obtained from Nimo Russo. I have explained the procedure in detail and discussed the risks, benefits, and potential complications. All questions have been answered. Calin Berry MD Sep 25, 2016 13:28
[2016-09-25] MEDS ORDERED: PHARMACY ORDERED LAB XX ONE (17:45)
[2016-09-25] MEDS: MAGNESIUM OXIDE 400 MG TAB PO SCH (18:46)
[2016-09-25] MEDS: PRAVASTATIN SOD 80 MG TAB PO SCH (20:01)
[2016-09-26] VITALS (20 sets, daily range): BP systolic 120–169; BP diastolic 60–86; PULSE 71–89; RESP 16–20; TEMP 97.3–98.3; O2SAT 96–99
[2016-09-26] MEDS: SODIUM BICARBONATE 8.4% INJ 50 MEQ in DEXTROSE 5% IN WATE 1000ML INJ 1,000 ML IV SCH ×2 (00:09)
[2016-09-26] MEDS: oxyCODONE/ACETAMINOPHEN 5 MG/325 MG TAB PO PRN ×3 (03:42→20:10)
[2016-09-26] MEDS: PIPERACIL-TAZO 3.375 GM PREMIX 50 ML IV SCH ×3 (06:00→17:56)
[2016-09-26] MEDS: LEVOTHYROXINE SODIUM 50 MCG TAB PO SCH (06:06)
[2016-09-26] MEDS: PREGABALIN 75 MG CAP PO SCH ×3 (06:30→20:21)
[2016-09-26] MEDS: VANCOMYCIN INJ 750 MG in SODIUM CHLOR 0.9% 250 ML INJ 250 ML IV SCH ×2 (06:30→19:14)
[2016-09-26] MEDS: MEDIUM DOSE INSULIN NOVOLOG SUPPLEMENTAL SCALE SQ SCH ×4 (06:44→20:10)
[2016-09-26] MEDS ORDERED: HEPARIN SODIUM - SQ 10,000 UNITS/ML VIAL ONE (06:49)
[2016-09-26] MEDS ORDERED: HEPARIN SODIUM - IV 10,000 UNITS/10 ML VIAL ONE (06:49)
[2016-09-26] MEDS ORDERED: PROTAMINE SULFATE 50 MG/5 ML VIAL ONE (06:49)
[2016-09-26] MEDS: glipiZIDE 10 MG TAB PO SCH ×2 (07:00→17:32)
[2016-09-26] MEDS: SODIUM CHLORID 0.9% 500 ML IV SCH (07:30)
[2016-09-26] MEDS ORDERED: LACTATED RINGER'S 1000 ML IV SCH (07:30)
[2016-09-26] MEDS ORDERED: METOPROLOL TARTRATE 25 MG TAB PO PRN (07:30)
[2016-09-26] MEDS ORDERED: INSULIN HUMAN REGULAR 1,000 UNITS/10 ML VIAL SQ PRN (07:30)
[2016-09-26] MEDS ORDERED: DEXAMETHASONE SOD PHOS 4 MG/ML VIAL ONE (07:40)
[2016-09-26] MEDS ORDERED: FAMOTIDINE 20 MG/2 ML VIAL ONE (07:40)
[2016-09-26] MEDS ORDERED: IOHEXOL 300 MG/ML 50 ML BTL (for RAD DIAG) OTHER ONE (08:08)
[2016-09-26] MEDS: PANTOPRAZOLE SOD 20 MG DELAYED RELEASE TAB PO SCH (09:00)
[2016-09-26] MEDS: MULTIVITAMIN TAB PO SCH (09:00)
[2016-09-26] MEDS: COLLAGENASE OINT 30 GM TUBE TOP SCH (09:00)
[2016-09-26] MEDS: LOSARTAN 50 MG TAB PO SCH (09:00)
[2016-09-26] MEDS ORDERED: MORPHINE SULFATE 4 MG/ML INJ ONE (10:56)
--- NOTE | 2016-09-26 11:20 | PD.VS.PN ---
Subjective POD #: 0 Procedure(s): right pop recanalization right TMA revision Subjective/Hospital Course Pt is a 76/F with R LE tissue loss No complaints this morning Sitting in chair, eating. Notes L groin feels better Objective Cardiac: RIght DP and PT triphasic. Laboratory Laboratory Tests Test 09/25/16 09/26/16 18:28 06:09 Vancomycin Level Trough 14.8 Creatinine 1.13 Estimat Glomerular Filtration 47 Rate Assessment and Plan Assessment: (1) Diabetic foot ulcer with osteomyelitis Status: Chronic Plan This is a 76 year old female with a right great toe amputation that has failed to completely heal. status post right pop rechannelling with DCB and revision of toe amputation. Improved signals right DP and PT. Julian Brooks DO Sep 26, 2016 11:20
[2016-09-26] MEDS ORDERED: IOHEXOL 300 MG/ML 50 ML BTL (for RAD DIAG) ONE (11:33)
[2016-09-26] MEDS ORDERED: ePHEDrine/NS 25 MG/5 ML SYR IV ONE (11:38)
[2016-09-26] MEDS ORDERED: ONDANSETRON HCL 4 MG/2 ML VIAL IV PUSH ONE (11:38)
[2016-09-26] MEDS ORDERED: PROPOFOL 200 MG/20 ML AMP IV ONE (11:38)
[2016-09-26] MEDS ORDERED: LACTATED RINGER'S 1000 ML INJ 1,000 ML IV ONE (11:38)
[2016-09-26] MEDS ORDERED: ROPIVACAINE 0.5% PF INJ 30 ML VIAL NB ONE (12:31)
[2016-09-26] MEDS ORDERED: LIDOCAINE HCL 1% 30 ML VIAL NB ONE (12:31)
[2016-09-26] MEDS ORDERED: DO NOT ADM ANY ANTICOAGULANT DRUGS XX PRN (12:45)
[2016-09-26] MEDS: MAGNESIUM OXIDE 400 MG TAB PO SCH (17:33)
[2016-09-26] MEDS ORDERED: PHARMACY ORDERED LAB XX ONE (17:45)
[2016-09-26] MEDS: PRAVASTATIN SOD 80 MG TAB PO SCH (20:11)
[2016-09-27] VITALS (26 sets, daily range): BP systolic 116–165; BP diastolic 67–87; PULSE 60–90; RESP 16–25; TEMP 97.1–98.5; O2SAT 94–99
[2016-09-27] MEDS: SODIUM CHLORID 0.9% 500 ML IV SCH (00:10)
[2016-09-27] MEDS: oxyCODONE/ACETAMINOPHEN 5 MG/325 MG TAB PO PRN ×4 (03:58→20:12)
[2016-09-27] MEDS: MEDIUM DOSE INSULIN NOVOLOG SUPPLEMENTAL SCALE SQ SCH ×4 (05:48→21:00)
[2016-09-27] MEDS: PIPERACIL-TAZO 3.375 GM PREMIX 50 ML IV SCH ×4 (05:48→18:48)
[2016-09-27] MEDS: LEVOTHYROXINE SODIUM 50 MCG TAB PO SCH (05:48)
[2016-09-27] MEDS: VANCOMYCIN INJ 500 MG in SODIUM CHLOR 0.9% 250 ML INJ 250 ML IV SCH ×2 (06:00→17:44)
[2016-09-27] MEDS: MORPHINE SULFATE 4 MG/ML INJ IV PRN ×4 (06:10→20:13)
[2016-09-27] MEDS: glipiZIDE 10 MG TAB PO SCH ×2 (06:31→15:44)
[2016-09-27] MEDS: PREGABALIN 75 MG CAP PO SCH ×2 (08:55→20:13)
[2016-09-27] MEDS: PANTOPRAZOLE SOD 20 MG DELAYED RELEASE TAB PO SCH (08:55)
[2016-09-27] MEDS: MULTIVITAMIN TAB PO SCH (08:56)
[2016-09-27] MEDS: COLLAGENASE OINT 30 GM TUBE TOP SCH (08:56)
[2016-09-27] MEDS: LOSARTAN 50 MG TAB PO SCH (08:57)
--- NOTE | 2016-09-27 11:26 | PD.VS.PN ---
Subjective POD #: 1 Procedure(s): right pop recanalization right TMA revision Subjective/Hospital Course Pt is a 76/F post-op Right pop recanalization Right TMA revision Pt resting in bed with right foot elevated via pillow, Dressing to right foot andrew and intact with no drainage Pt has no complaints at present time Objective Vitals/I&O Date Time Temp Pulse Resp B/P Pulse Ox O2 Delivery O2 Flow Rate FiO2 09/27/16 10:51 95 21 09/27/16 08:45 65 09/27/16 07:30 97.1 74 25 118/67 99 09/27/16 07:30 60 09/27/16 06:00 80 09/27/16 05:00 86 09/27/16 04:00 98.3 77 16 126/70 96 09/27/16 04:00 81 09/27/16 03:00 86 09/27/16 02:00 80 09/27/16 01:00 80 09/27/16 00:00 78 09/27/16 00:00 98.1 90 16 132/70 96 09/26/16 23:00 86 09/26/16 22:00 86 09/26/16 21:00 88 09/26/16 20:00 89 09/26/16 19:49 98.1 88 20 148/75 97 09/26/16 19:15 96 Room Air 09/26/16 19:00 88 09/26/16 18:00 85 09/26/16 17:00 81 09/26/16 16:00 82 09/26/16 16:00 97.6 83 16 142/78 96 09/26/16 15:00 80 09/26/16 13:00 81 09/26/16 12:11 89 09/26/16 12:00 97.3 79 16 169/86 99 09/27/16 09/27/16 09/27/16 06:59 14:59 22:59 Intake Total 240 ml Output Total 250 ml Balance -10 ml Exam: GENERAL: Pleasant A&OX3 patient resting comfortably nad noted SKIN: Warm and dry. Right great toe amp site tissue red in color with NO odor swelling or purulent drainage. NECK: Supple, trachea midline. No JVD or lymphadenopathy. CARDIOVASCULAR: Regular rate and rhythm RESPIRATORY: Breath sounds equal bilaterally. No accessory muscle use. MUSCULOSKELETAL: No cyanosis, or edema. BLE warm with motor sensation intact BILAT DT/PT heard via doppler with triphasic signals Pulses: Bilat PT/DP heard via doppler with triphasic signals Laboratory Laboratory Tests Test 09/26/16 18:45 Vancomycin Level Trough 15.9 Assessment and Plan Assessment: (1) Diabetic foot ulcer with osteomyelitis Status: Chronic Plan This is a 76 year old female with a right great toe amputation that has failed to completely heal. status post right pop rechannelling with DCB and revision of toe amputation. Improved signals right DP and PT. 1. Removed Dressing Post -Op 2. Wound Vac applied (125 mmHg set at low continuous) to right amp site 3. Consult Dietitian for Diabetic Diet Syeda [facility]/[place] [phone] Syeda Cobian Sep 27, 2016 11:25
--- NOTE | 2016-09-27 12:22 | HHI.FF ---
Face to Face Verification Diagnosis: (1) Diabetic foot ulcer with osteomyelitis Physical Therapy Order: Evaluate and Treat, Improve ambulation Home Health Nursing Order: Diabetic education Wound care and dressing changes I have seen patient Nimo Russo on 09/27/16. My clinical findings support the need for the requested home health care services because: This is a 76 year old female with a right great toe amputation that has failed to completely heal. She is a post-op right pop recanalization right TMA revision who will need out-patient therapy (PHYSICAL/ WOUND CARE) to aid in dressing changes and wound healing. Ltd mobility - disease progression High risk of falls Infection w/ risk of complications I certify that my clinical findings support that this patient is homebound because: This is a 76 year old female with a right great toe amputation that has failed previous therapy. Unsteady gait/balance Syeda Cobian Sep 27, 2016 12:22
[2016-09-27] MEDS: MAGNESIUM OXIDE 400 MG TAB PO SCH (16:54)
[2016-09-27] MEDS ORDERED: PHARMACY ORDERED LAB XX ONE (17:45)
[2016-09-27] MEDS: PRAVASTATIN SOD 80 MG TAB PO SCH (20:13)
[2016-09-27] MEDS: SODIUM BICARBONATE 8.4% INJ 50 MEQ in DEXTROSE 5% IN WATE 1000ML INJ 1,000 ML IV SCH ×4 (20:14)
[2016-09-27] MEDS ORDERED: HYDROmorphone HCL PF 1 MG/ML VIAL IV PRN (21:30)
[2016-09-27] MEDS ORDERED: HYDROmorphone HCL PF 1 MG/ML VIAL IV ONE (21:30)
[2016-09-28] VITALS (24 sets, daily range): BP systolic 86–153; BP diastolic 55–86; PULSE 68–88; RESP 16–18; TEMP 97–98.1; O2SAT 95–100
[2016-09-28] MEDS: PIPERACIL-TAZO 3.375 GM PREMIX 50 ML IV SCH ×4 (02:45→17:09)
[2016-09-28] MEDS: oxyCODONE/ACETAMINOPHEN 5 MG/325 MG TAB PO PRN ×5 (02:46→20:04)
[2016-09-28] MEDS: MORPHINE SULFATE 4 MG/ML INJ IV PRN ×4 (02:46→11:58)
[2016-09-28] MEDS ORDERED: PHARMACY ORDERED LAB XX ONE (05:45)
[2016-09-28] MEDS: LEVOTHYROXINE SODIUM 50 MCG TAB PO SCH (06:36)
[2016-09-28] MEDS: MEDIUM DOSE INSULIN NOVOLOG SUPPLEMENTAL SCALE SQ SCH ×4 (06:37→20:05)
[2016-09-28] MEDS: glipiZIDE 10 MG TAB PO SCH ×2 (06:37→15:36)
[2016-09-28] MEDS: COLLAGENASE OINT 30 GM TUBE TOP SCH (09:00)
[2016-09-28 09:15] LABS: VANCOMYCIN TROUGH 11.8 MCG/ML (5.0-10.0)
[2016-09-28] MEDS: VANCOMYCIN INJ 500 MG in SODIUM CHLOR 0.9% 250 ML INJ 250 ML IV SCH (09:24)
[2016-09-28] MEDS: PANTOPRAZOLE SOD 20 MG DELAYED RELEASE TAB PO SCH (09:35)
[2016-09-28] MEDS: PREGABALIN 75 MG CAP PO SCH ×2 (09:35→20:04)
[2016-09-28] MEDS: LOSARTAN 50 MG TAB PO SCH (09:35)
[2016-09-28] MEDS: MULTIVITAMIN TAB PO SCH (09:35)
[2016-09-28] MEDS ORDERED: ALTEPLASE RECOMBINANT 2 MG VIAL IV FLUSH ONE (10:15)
[2016-09-28] MEDS ORDERED: LEVA750T PO (15:24)
[2016-09-28] MEDS ORDERED: VANC1000P IV (15:27)
--- NOTE | 2016-09-28 15:30 | PD.VS.DC ---
Discharge Summary Admission Date: Sep 19, 2016 at 19:23 Discharge Date: Sep 29, 2016 Admission Diagnosis: (1) Diabetic foot ulcer with osteomyelitis Discharge Diagnosis: (1) Diabetic foot ulcer with osteomyelitis Status: Chronic Brief History from admission 76 year old female with hx of endovascular tibial revascularization in 2016 for right great toe gangrene status post amputation and wound care (wound care center [facility]) with hyperbaric oxygen. Patient presented to office for surveillance duplex US and was found to have patent right Common femoral, SFA and Popliteal arteries with monophasic flow distally. Right great toe stump was malodorous with discharge. Spoke with Dr. Massey information systems director (privileges at [facility]) last week in office. Dr. Massey asked if patient could be admitted via [facility] ER for evaluation and possible debridement/resection and plan for IV antibiotics by her ID physician ( wound care physician) in charge of her hyperbaric oxygen (Dr. Pa) I agreed to this although suspected failed vascular intervention and that patient needed an angiogram with possible intervention (percutaneous vs open) with vein mapping. Was scheduled to have this today at [facility]. Patient's son notified me that patient had an angiogram and would be possibly having a bypass by Dr. Watts at [facility]. This is a long established patient known to me and after discussion with the patient's son they agreed to have the patient transferred here. Procedure(s): right pop recanalization right TMA revision Significant Findings Laboratory Tests Test 09/25/16 09/26/16 09/26/16 09/28/16 18:28 06:09 18:45 08:26 Vancomycin Level Trough 14.8 MCG/ML 15.9 MCG/ML 11.8 MCG/ML (5.0-10.0) (5.0-10.0) (5.0-10.0) Creatinine 1.13 MG/DL (0.50-1.00) Estimat Glomerular Filtration 47 ML/MIN (>89) 55 ML/MIN (>89) Rate Hospital Course: GENERAL: Pt siting up in chair with bilat LE elevated, Wound vac to Right great toe amp site placed and intact SKIN: Warm and dry. NECK: Supple, trachea midline. No JVD or lymphadenopathy. CARDIOVASCULAR: Regular rate and rhythm without murmurs, gallops, or rubs. RESPIRATORY: Breath sounds equal bilaterally. No accessory muscle use. MUSCULOSKELETAL: No cyanosis, or edema. Discharge Condition: Good Discharge Disposition: Rehab Inpatient (Pt will be [facility] to [facility] tomorrow AM ) Any questions or concerns: Call [facility] Heart and Vascular Surgery at [facility] [phone] Syeda Cobian Sep 28, 2016 15:30
--- NOTE | 2016-09-28 15:33 | PD.VS.DC ---
Discharge Summary Admission Date: Sep 19, 2016 at 19:23 Discharge Date: Sep 29, 2016 Admission Diagnosis: (1) PAD (peripheral artery disease) (2) Diabetic foot ulcer with osteomyelitis Discharge Diagnosis: (1) PAD (peripheral artery disease) Status: Chronic (2) Diabetic foot ulcer with osteomyelitis Status: Chronic Brief History from admission 76 year old female with hx of endovascular tibial revascularization in 2016 for right great toe gangrene status post amputation and wound care (wound care center [place]) with hyperbaric oxygen. Patient presented to office for surveillance duplex US and was found to have patent right Common femoral, SFA and Popliteal arteries with monophasic flow distally. Right great toe stump was malodorous with discharge. Spoke with Dr. Massey crts (privileges at [facility]) last week in office. Dr. Massey asked if patient could be admitted via [facility] ER for evaluation and possible debridement/resection and plan for IV antibiotics by her ID physician ( wound care physician) in charge of her hyperbaric oxygen (Dr. Pa) I agreed to this although suspected failed vascular intervention and that patient needed an angiogram with possible intervention (percutaneous vs open) with vein mapping. Was scheduled to have this today at [facility]. Patient's son notified me that patient had an angiogram and would be possibly having a bypass by Dr. Watts at [facility]. This is a long established patient known to me and after discussion with the patient's son they agreed to have the patient transferred here. Procedure(s): right pop recanalization right TMA revision Significant Findings Laboratory Tests Test 09/25/16 09/26/16 09/26/16 09/28/16 18:28 06:09 18:45 08:26 Vancomycin Level Trough 14.8 MCG/ML 15.9 MCG/ML 11.8 MCG/ML (5.0-10.0) (5.0-10.0) (5.0-10.0) Creatinine 1.13 MG/DL (0.50-1.00) Estimat Glomerular Filtration 47 ML/MIN (>89) 55 ML/MIN (>89) Rate Hospital Course: labs and vitals reviewed Discharge Condition: Good Discharge Disposition: Discharge Home Discharge Instructions: Keep wound vac on till instructed Follow-up appointment in 3 weeks at scheduled time 10/19/16 at 1015 Call the office for any questions or concerns Any questions or concerns: Call [facility] Heart and Vascular Surgery at [facility] [phone] Syeda Cobian Sep 28, 2016 15:33
[2016-09-28] MEDS: MAGNESIUM OXIDE 400 MG TAB PO SCH (17:09)
[2016-09-28] MEDS ORDERED: VANCOMYCIN INJ 1,500 MG in SODIUM CHLORID 0.9% 500 ML INJ 500 ML IV SCH (18:00)
[2016-09-28] MEDS: PRAVASTATIN SOD 80 MG TAB PO SCH (20:02)
[2016-09-29 00:01] VITALS: BP 125/70; PULSE 68; RESP 18; TEMP 97.6; O2SAT 96
[2016-09-29] MEDS: oxyCODONE/ACETAMINOPHEN 5 MG/325 MG TAB PO PRN ×3 (00:31→09:36)
[2016-09-29] MEDS: PIPERACIL-TAZO 3.375 GM PREMIX 50 ML IV SCH ×2 (00:31→05:32)
[2016-09-29] MEDS: SODIUM BICARBONATE 8.4% INJ 50 MEQ in DEXTROSE 5% IN WATE 1000ML INJ 1,000 ML IV SCH ×2 (01:00)
[2016-09-29 04:01] VITALS: BP 127/67; PULSE 68; PULSE 74; RESP 18; TEMP 97.8; O2SAT 98
[2016-09-29] MEDS: glipiZIDE 10 MG TAB PO SCH (05:32)
[2016-09-29] MEDS: LEVOTHYROXINE SODIUM 50 MCG TAB PO SCH (05:32)
[2016-09-29] MEDS: MEDIUM DOSE INSULIN NOVOLOG SUPPLEMENTAL SCALE SQ SCH (05:37)
[2016-09-29 08:00] VITALS: BP 142/85; PULSE 80; PULSE 92; RESP 16; TEMP 97.8; O2SAT 97
[2016-09-29] MEDS: MULTIVITAMIN TAB PO SCH (08:16)
[2016-09-29] MEDS: PANTOPRAZOLE SOD 20 MG DELAYED RELEASE TAB PO SCH (08:16)
[2016-09-29] MEDS: LOSARTAN 50 MG TAB PO SCH (08:16)
[2016-09-29] MEDS: COLLAGENASE OINT 30 GM TUBE TOP SCH (08:16)
[2016-09-29] MEDS: PREGABALIN 75 MG CAP PO SCH (08:16)
[2016-09-29 09:23] VITALS: RESP 16
--- NOTE | 2016-09-29 11:33 | MP ---
cc: ISHMAEL HURLEY DATE OF SURGERY 09/26/2016 PREOPERATIVE DIAGNOSIS Critical limb ischemia with nonhealing wound right great toe amputation site POSTOPERATIVE DIAGNOSIS Critical limb ischemia with nonhealing wound right great toe amputation site PROCEDURE 1. Aortogram. 2. Selective right lower extremity arteriogram. 3. Re-channeling of right popliteal artery. 4. First metatarsal revision amputation SURGEONS Ishmael Hurley DO ANESTHESIA MAC and local and regional nerve block left ankle IV FLUIDS One liter of crystalloid ESTIMATED BLOOD LOSS Minimal URINE OUTPUT Not calculated. COMPLICATIONS None DISPOSITION To PACU PROCEDURE The patient was prepped and draped from the Xiphoid process to the toes bilaterally. I got access to the left common femoral artery using duplex ultrasound. I placed a 21-gauge needle and exchanged for a single wire for a 4-[place] micropuncture catheter and exchanged for a 5-[place] sheath. I advanced an Omni flush catheter with a stiff angled Glidewire in the abdominal aorta and I shot an AP aortogram. I went up and over into the right common femoral artery and shot a selective right lower extremity arteriogram. My findings were that the abdominal aorta was widely patent. The bilateral renal arteries appeared to be patent. The bilateral common internal and external iliac arteries were patent. The left common femoral, proximal SFA and profunda femoral arteries are patent and the sheath was approximately two fingerbreadths above the bifurcation of the profunda and SFA. On the right side, the right common femoral and profunda femoral arteries were patent. The right superficial femoral artery was patent. There was mild disease just above the area of the adductor canal. The right popliteal artery was occluded below the knee with reconstitution via collaterals of the anterior tibial artery and a segment of disease peroneal artery. There was a distal reconstitution. The distal anterior tibial artery was not patent and the dorsalis pedis arteries reconstituted through collaterals in the lower extremity. Based on this, we exchanged for a 6-[place] 90 cm destination sheath that I placed in the right superficial femoral artery. I then exchanged for a stiff angle Glidewire and a Quick-Cross catheter to cross the right popliteal artery. It should be noted before I performed my crossing, I did give 4000 units of heparin. The patient's ACT was approximately 251. Once I selected the right lower extremity, I was able cross the right popliteal artery. My wire did end up in the peroneal artery. Then predilated with a 4 mm x 8 cm Medtronic balloon and then I used a drug coated Medtronic Admiral balloon to cross the popliteal artery. It was an 8 cm x 4 mm. Afterwards, there was good flow through the right popliteal artery with the peroneal artery reconstituting in the dorsalis pedis and pedal vessels. The proximal AP and distal AP were occluded. There was a segment of AT that was indeed patent. The patient tolerated this portion of the procedure appropriately. It should be noted after we finished our recanalization of the right popliteal artery, I then pulled my catheter out and exchanged for a sheath. We made sure we gave 20 of protamine and pulled the sheath out of the left groin. We then used two Center retractors and used a small oscillating saw and rasped in order to removed the capsular head of the first metatarsal. This was removed and any fibrinous tissue was removed and the area was supplied was packed. I used an electrocautery to help out with hemostasis and Surgicel. We packed this area with a pressure dressing with 4x4s and Kerlix and Klye bandage. It should be noted the patient did not appear to have better perfusion to this area as it was bleeding substantially. The patient tolerated the procedure well. DO KEVIN Aquino /10:23 AM /11:19 AM GIO
[2016-10-01] MEDS ORDERED: PHARMACY ORDERED LAB XX ONE (17:45)
[2016-10-14] MEDS ORDERED: FENT25T TD (08:23)
[2016-10-14] MEDS ORDERED: METF850 PO (08:23)
[2016-10-14] MEDS ORDERED: DOCU1CAP39 PO (08:23)
[2016-10-14] MEDS ORDERED: LEVEMIR SQ (08:23)
[2016-10-14] MEDS ORDERED: OMEP20TA PO (08:23)
[2016-10-14] MEDS ORDERED: LYRI75CA PO (08:23)
[2016-10-14] MEDS ORDERED: MULT-65 PO (08:23)
[2016-10-14] MEDS ORDERED: SIMV40TA PO (08:23)
[2016-10-14] MEDS ORDERED: MAGN400T3 PO (08:23)
[2016-10-14] MEDS ORDERED: PLAV75TA29 PO (08:23)
[2016-10-14] MEDS ORDERED: OXYC1TAB36 PO (08:23)
[2016-10-14] MEDS ORDERED: LEVO50TA4 PO (08:23)
[2016-10-14] MEDS ORDERED: LOSA50TA PO (08:23)
[2016-10-14] MEDS ORDERED: INSU1INJ5 SQ (08:25)
[2016-12-14] MEDS ORDERED: LEVO50TA4 PO (11:05)
== END 2016-09-29 10:40 | DRG 253 ==
LOC: HCIN 19:23
PROVIDERS: ADMIT Surgery; ATTEND Surgery
PROC: B44LZZZ Ultrasonography of Femoral Artery (ICD-10-PCS; 2016-09-21)
PROC: B41F1ZZ Fluoroscopy of Right Lower Extremity Arteries using Low Osmolar Contrast (ICD-10-PCS; 2016-09-26)
PROC: B4101ZZ Fluoroscopy of Abdominal Aorta using Low Osmolar Contrast (ICD-10-PCS; 2016-09-26)
PROC: 047M3ZZ Dilation of Right Popliteal Artery, Percutaneous Approach (ICD-10-PCS; principal; 2016-09-26 07:55)
PROC: 0QBN0ZZ Excision of Right Metatarsal, Open Approach (ICD-10-PCS; 2016-09-26 07:55)
DX: E11.51 Type 2 diabetes mellitus with diabetic peripheral angiopathy without gangrene (principal); M86.671 Other chronic osteomyelitis, right ankle and foot; E11.42 Type 2 diabetes mellitus with diabetic polyneuropathy; E11.621 Type 2 diabetes mellitus with foot ulcer; T87.89 Other complications of amputation stump; E11.69 Type 2 diabetes mellitus with other specified complication; L97.519 Non-pressure chronic ulcer of other part of right foot with unspecified severity; E03.9 Hypothyroidism, unspecified; I10 Essential (primary) hypertension; Z53.8 Procedure and treatment not carried out for other reasons; E78.5 Hyperlipidemia, unspecified; Z79.84 Long term (current) use of oral hypoglycemic drugs
CPT/HCPCS: 75710; 80048; 80202; 82565; 82948; 83036; 85025; 85610; 85730; 93005; 93970; 93998; C1725; C1769; C1887; C2623; J0690; J1100; J1170; J1644; J1815; J2250; J2270; J2405; J2543; J2720; J2795; J2997; J3010; J3370; J7040; J7042; J7050; J7070; J7120; Q9967